=== PATIENT | female | born 1955 ===

== ENCOUNTER → 2025-02-15 | Day surgery (SDC) | payer OTHER ==
[2025-02-09 10:49] VITALS: BP 160/85
[~2025-02-15] VITALS: Ht 154.9 cm; Wt 64.4 kg
[~2025-02-15] MED LIST: BUPIVACAINE HCL/MPF 0.5% 30ML VIAL ONE; CEFADROXIL500 MG PO; CEFAZOLIN SODIUM 1,000 MG VIAL ONE; EPINEPHRINE HCL/PF 1 MG/ML AMPUL ONE; LOSARTAN POTASS50 MG PO; MEPERIDINE HCL/PF 25 MG/ML VIAL IM PRN; PROMETHAZINE HCL 25 MG/ML AMPUL IM PRN; TRAM1TAB98 PO; URSO FORTE500 MG PO
== END | disposition home or self-care (01) ==
LOC: ADM 02-09 10:15 → CIR.AMB 08:30
PROVIDERS: ATTEND Orthopaedic Surgery Sports Medicine
DX: M23.221 Derangement of posterior horn of medial meniscus due to old tear or injury, right knee (principal); M17.11 Unilateral primary osteoarthritis, right knee; M23.51 Chronic instability of knee, right knee; M67.51 Plica syndrome, right knee; M22.41 Chondromalacia patellae, right knee